=== PATIENT | female | born 1935 | race Caucasian/White ===

== ENCOUNTER 2017-01-28 11:04 | Emergency (ER) | payer MEDICARE ==
--- NOTE | ~2017-01-28 | ER ---
PATIENT'S NAME: REJI GUERRA [facility] AGE: 82 Y [address] ROOM: [place] [address] LOCATION: [facility] ADMIT DATE: 01/28/2017 ER/Outpatient Report DISCHARGE DATE: 01/28/2017 FAMILY PHYSICIAN: Luz Nice MD ATTENDING PHYSICIAN: Juan Gagnon Time of Arrival: 1100 hours. Time of Evaluation: 1100 hours. CHIEF COMPLAINT: Weakness. HISTORY OF PRESENT ILLNESS: The patient is an 82-year-old female, who presents to the emergency department today with a chief complaint of weakness. She reports this started about 30 minutes prior to arrival. She was at [facility], had just eaten breakfast. She was coming out after breakfast, and all of a sudden felt dizzy. She felt weak. She denies any fevers or chills. No chest pain. No shortness of breath. No cough. No nausea or vomiting. No diarrhea. No constipation. She does have some pressure in her head. It is currently 8/10 in severity. Denies any blood in her stool. No dark tarry stools. She did call her daughter, who brought her in for further evaluation and treatment. PAST MEDICAL HISTORY: Insulin-dependent diabetes, hypertension. PAST SURGICAL HISTORY: Stomach, pelvic mass, hysterectomy. SOCIAL HISTORY: The patient denies any tobacco, alcohol, or illicit drug use. ALLERGIES: NO KNOWN DRUG ALLERGIES. MEDICATIONS: Please see list. PRIMARY CARE DOCTOR: Dr. Nice. REVIEW OF SYSTEMS: All systems are reviewed by myself and are negative with the exception of those discussed in the HPI and past medical history. PATIENT'S NAME: REJI GUERRA [facility] AGE: 82 Y [address] ROOM: [place], [place] [address] LOCATION: ED ADMIT DATE: 01/28/2017 ER/Outpatient Report DISCHARGE DATE: 01/28/2017 FAMILY PHYSICIAN: Luz Nice MD ATTENDING PHYSICIAN: Juan Gagnon PHYSICAL EXAMINATION: VITAL SIGNS: Weight 76.5 kg, blood pressure 167/68, pulse 75, respiratory rate 18, temperature 97.8, oxygen saturation 93% on room air. GENERAL: The patient is an 82-year-old female, who appears stated age. NECK: Supple. There is no nuchal rigidity. CARDIOVASCULAR: Regular rate and rhythm. No murmurs, rubs, or gallops. LUNGS: Clear to auscultation bilaterally. No wheezes, rales, or rhonchi. ABDOMEN: Soft, nontender, and nondistended. No rebound, rigidity, or guarding. MUSCULOSKELETAL: The patient moves all 4 extremities. NEUROLOGICAL: GCS 15. Alert and oriented x4. Cranial nerves 2 through 12 are intact. Normal finger- to-nose. Normal rapid hand movement. Equal farm management adviser strength bilaterally. Downward going toes. No clonus. 2/4 reflexes. SKIN: Warm and dry. There are no rashes or lesions noted. LABORATORY DATA AND X-RAYS: Venous blood gas: 7.37, 49, 42, 28, 2.3. Lactate is 2.0. Procalcitonin is less than 0.5. CBC is normal. CMP is normal except for creatinine 1.3, glucose 321. LFTs are normal. Coags are normal. EKG is obtained, is interpreted by myself, shows sinus rhythm with a rate of 72, normal axis, normal interval. No ST elevation, ST depression, T-wave inversions. CT scan of the brain is obtained. I have discussed the results with the radiologist shows no acute process. D-dimer is normal. Magnesium is 1.6. CK, CK-MB, and troponin are normal. ProBNP is 494. Urinalysis: 100 leukocyte esterase, 30 protein, 250 glucose, 5 ketones, 2 to 5 wbc's, 5-10 epithelials. Acetone is negative. Repeat EKG shows sinus rhythm with a rate of 63, normal axis, normal interval. No ST elevation, ST depression, T-wave inversions. A 2-hour cardiac enzymes are normal. IMPRESSION: 1. Generalized weakness. 2. Elevated blood pressure. 3. Elevated glucose. 4. Initial visit. EMERGENCY DEPARTMENT COURSE: The patient was brought back to the examination room. Seen and evaluated by myself. IV is established. Laboratory analysis, imaging, and EKG are obtained as described above. The patient was given a liter and a half of normal saline IV. She was given 10 mg of Norvasc p.o. I discussed the results with the patient. I have contacted Dr. Nice, the patient's primary care doctor. He does report that the patient's blood pressure has been difficult to control in the past. They are attempting to work on this. He has asked that she follow up with him at 9:30 on Tuesday for re-evaluation. I have discussed this with the patient and her daughter. We have ambulated PATIENT'S NAME: RJEI GUERRA [facility] AGE: 82 Y [address] ROOM: [place] [address] LOCATION: ED ADMIT DATE: 01/28/2017 ER/Outpatient Report DISCHARGE DATE: 01/28/2017 FAMILY PHYSICIAN: Luz Nice MD ATTENDING PHYSICIAN: Juan Gagnon the patient. She feels much improved after the fluids. I have discussed return to care instructions including worsening symptoms or any other concerns to return to the emergency department as soon as possible. The patient is agreeable and daughter is agreeable. They are without further questions at this time. DISPOSITION,: The patient discharged home in good condition. DO KWAKU PRADO/yojanal /[id number] d: 01/28/17 2325 t: 01/31/17 1619, OUTPATIENT REPORT
[2017-01-28 11:53] LABS: BASOPHIL % 0.4 %; BICARBONATE 28.3 mmol/L (18.0-23.0); EOSINOPHIL # 0.2 K/uL (0.0-0.5); EOSINOPHIL % 2.4 %; HEMATOCRIT 33.8 % (30.0-46.0); HEMOGLOBIN 11.1 g/dL (10.0-15.0); IMMATURE GRANULOCYTE % 0.3 %; LACTATE 3.8 mEq/L (0.50-1.60); LYMPHOCYTE # 1.4 K/uL (0.8-4.0); LYMPHOCYTE % 21.3 %; MCH 29.1 pg (27.0-34.0); MCHC 32.8 gm/dL (32.0-36.5); MCV 88.5 fl (83.0-98.0); MONOCYTE # 0.4 K/uL (0.0-1.0); MONOCYTE % 5.3 %; MPV 10.7 fl (9.4-12.4); NEUTROPHIL # (ANC) 4.8 K/uL (1.8-7.8); NEUTROPHIL % 70.3 %; NRBC % 0 /100WBC (0-0.00); PCO2 49 mmHg (35-45); PLATELET COUNT 217 K/uL (150-450); PO2 42 mmHg (80-90); RBC 3.82 M/uL (3.00-5.00); RDW-CV 12.2 % (11.9-14.6); WBC 6.8 K/uL (4.0-11.0)
[2017-01-28 12:01] LABS: INR - (THERAPEUTIC) 0.98 (0.92-1.07); PROTIME 10.3 SECONDS (9.8-11.4); PTT 26 SECONDS (25-32)
[2017-01-28 12:21] LABS: BILIRUBIN URINE NEGATIVE (NEGATIVE); BLOOD URINE NEGATIVE /UL (NEGATIVE); COLOR URINE YELLOW (YELLOW); GLUCOSE URINE 250 mg/dL (NEGATIVE); KETONE URINE 5 mg/dL (NEGATIVE); LEUKOCYTES URINE 100 /UL (NEGATIVE); NITRITE URINE NEGATIVE (NEGATIVE); PROTEIN URINE 30 mg/dL (NEGATIVE); TURBIDITY URINE CLEAR (CLEAR); UROBILINOGEN URINE NORMAL (NORMAL)
[2017-01-28 12:24] LABS: ALBUMIN 3.3 gm/dL (3.5-5.0); ALK PHOS 62 IU/L (33-138); ALT 20 IU/L (12-78); ANION GAP 13.9 (10.0-19.0); AST 14 IU/L (10-40); BLOOD UREA NITROGEN 21 mg/dL (6-24); CALCIUM 9.2 mg/dL (8.5-10.5); CHLORIDE 103 mMol/L (96-110); CO2 25 mMol/L (22-32); CPK 41 IU/L (21-215); CREATININE 1.3 mg/dL (0.5-1.1); ESTIMATED GFR (MDRD EQUATION) 39; MAGNESIUM 1.6 mg/dL (1.8-2.6); POTASSIUM 3.9 mMol/L (3.7-5.1); SODIUM 138 mMol/L (135-145); TOTAL BILIRUBIN 0.3 mg/dL (0.0-1.5); TOTAL PROTEIN 6.4 g/dL (6.0-8.4)
[2017-01-28 12:54] LABS: RBC URINE NEGATIVE #/HPF (NEGATIVE)
[2017-01-28 12:55] LABS: BACTERIA URINE NEGATIVE (NEGATIVE)
[2017-01-28 14:06] LABS: CPK 36 IU/L (21-215)
== END 2017-01-28 15:08 | disposition disaster alternative care site (69) ==
LOC: GMED 11:04
PROVIDERS: Emergency Medicine
DX: R53.1 Weakness (principal); E11.9 Type 2 diabetes mellitus without complications; I10 Essential (primary) hypertension; Z90.710 Acquired absence of both cervix and uterus; Z98.890 Other specified postprocedural states; R73.09 Other abnormal glucose; Z79.84 Long term (current) use of oral hypoglycemic drugs; Z79.899 Other long term (current) drug therapy
CPT/HCPCS: J7030; J7040